=== PATIENT | female | born 1955 ===

== ENCOUNTER 2018-02-02 11:15 | Outpatient (CLI) | payer OTHER ==
[~2018-02-02] VITALS: Ht 157.5 cm; Wt 81.6 kg
== END 2018-02-02 11:30 | disposition home or self-care (01) ==
LOC: OFIC 805 11:15
DX: R42 Dizziness and giddiness (principal)

== ENCOUNTER 2018-02-22 14:11 | Outpatient (CLI) | payer OTHER ==
[~2018-02-22] VITALS: Ht 152.4 cm; Wt 81.6 kg
== END 2018-02-22 14:30 | disposition home or self-care (01) ==
LOC: OFIC 805 14:11
DX: R42 Dizziness and giddiness (principal)